=== PATIENT | female | born 1965 | race Caucasian/White ===

== ENCOUNTER 2017-04-17 15:10 | Emergency (ER) | payer MEDICAID, OTHER ==
[~2017-04-17] VITALS: Ht 162.6 cm; Wt 77.0 kg
[~2017-04-17 15:10] MED LIST: HYDR-569 PO
[2017-04-17] MEDS ORDERED: ibuprofen tablet 400 MG TABLET PO ONE (16:35)
[2017-04-17] MEDS ORDERED: acetaminophen 325mg tablet PO ONE (16:35)
[2017-04-17] MEDS ORDERED: HYDR-3965 PO (16:37)
[2017-04-17] MEDS ORDERED: DICL100G15 TOP (16:37)
[2017-04-17] MEDS ORDERED: ONDA4TAB12 PO (16:37)
[2017-04-17 17:18] VITALS: BP 142/96
== END 2017-04-17 17:21 | disposition home or self-care (01) ==
LOC: ER 15:11
DX: M75.82 Other shoulder lesions, left shoulder (principal); Z88.5 Allergy status to narcotic agent; Z79.899 Other long term (current) drug therapy
CPT/HCPCS: 73030; 99284

== ENCOUNTER 2019-06-09 16:01 | Emergency (ER) | payer MEDICAID, OTHER ==
[~2019-06-09] VITALS: Ht 160 cm; Wt 8.3 kg
[~2019-06-09 16:01] MED LIST changes: +DICL100G15 TOP; +HYDR-4383 PO; -HYDR-569 PO; +ONDA4TAB12 PO
[2019-06-09 16:18] VITALS: BP 139/84
[2019-06-09] MEDS ORDERED: HYDROcodone/acetaminophen 10/325mg tab PO ONE (16:25)
[2019-06-09] MEDS ORDERED: ACET-1025 PO (17:19)
[2019-06-09] MEDS ORDERED: HYDR-4353 PO (17:19)
== END 2019-06-09 17:42 | disposition home or self-care (01) ==
LOC: ER 16:02
DX: S92.324A Nondisplaced fracture of second metatarsal bone, right foot, initial encounter for closed fracture (principal); S92.334A Nondisplaced fracture of third metatarsal bone, right foot, initial encounter for closed fracture; S92.344A Nondisplaced fracture of fourth metatarsal bone, right foot, initial encounter for closed fracture; S92.354A Nondisplaced fracture of fifth metatarsal bone, right foot, initial encounter for closed fracture; Z72.89 Other problems related to lifestyle; Z98.890 Other specified postprocedural states; Z88.5 Allergy status to narcotic agent; Z79.899 Other long term (current) drug therapy; W18.39XA Other fall on same level, initial encounter; Y93.89 Activity, other specified; Y92.89 Other specified places as the place of occurrence of the external cause; Y99.8 Other external cause status
CPT/HCPCS: 73630; 99283